=== PATIENT | female | born 2000 ===

== ENCOUNTER 2024-05-27 16:06 | Emergency (ER) | payer MEDICAID ==
[~2024-05-27] VITALS: Ht 172.7 cm; Wt 78.4 kg
--- NOTE | 2024-05-27 16:24 | Physician Documentation ---
History of Present Illness ~ Chief Complaint: Ankle pain Stated Complaint: LEFT FOOT PAIN Time Seen by MD: 16:19 OK to notify your PCP?: Yes Source: patient Mode of Arrival: POV Exam Limitations: no limitations HPI This is a 24-year-old female who comes in complaining of left ankle pain after injuring it while snowboarding earlier today. She was had a hard time bearing weight on the ankle since the injury. She was not complaining of any other area of pain. Medication Reconciliation Allergies: Coded Allergies: No Known Allergies (Unverified , 05/27/24) Physical Exam Vital Signs: Temperature: 98.5, Source: Oral, Heart Rate: 124, Respiratory Rate: 18, BP: 130/69, Pulse Oximetry: 100, Weight: 78.400 Pulse Oximetry Reflects: adequate oxygenation General Appearance: alert, WD/WN, no apparent distress Ankle To inspection of the left ankle there is mild edema to the lateral malleolus aspect of the ankle. No gross deformity. No ecchymosis. There is tenderness to palpation over the lateral malleolus without obvious deformity or crepitus of the distal fibula. There was no tenderness to palpation of the posterior malleolus. No tenderness to palpation of the calcaneus. Achilles tendon shows no deformity and normal Mosqueda's sign. No tenderness to palpation of the proximal 5th metatarsal or squeezing the midfoot. The left dorsalis pedis pulses 2+ and cap refill less than 2 seconds and brisk in the digits of the left foot. The patient was decreased active range of motion in all movements secondary to subjective pain. Passively she was full range of motion in all movements with increased pain with inversion. Procedures Splinting Procedure Note The patient left ankle was placed in a canvas lace-up splint and given crutches with a crutch training. Distal circulation motor sensory assessed 20 minutes after application of the splint. Cap refill less than 2 seconds and brisk and pinkish brown warm dry. Progress Results/Orders Reviewed/noted all lab results: Yes Results/Orders Orders - LISE PEREIRA Ankle, Complete(3vw Min) (05/27/24 16:29) Completed Orders - LISE PEREIRA Ankle, Complete(3vw Min) (05/27/24 16:29) Vital Signs 05/27/24 16:15 Temp 98.5 Pulse 124 Resp 18 B/P (MAP) 130/69 Pulse Ox 100 EKG/XRAY/CT/US/VASC/MRI Bone/Soft Tissue X-Ray (Ext.) : Interpreted By: self Additional Comment X-ray left ankle three-view interpreted by me: No obvious fracture or malalignment. Subtle soft tissue swelling of the lateral malleolus. Medical Decision Making Findings X-rays did not show evidence of fracture. The patient was fitted with a lace-up ankle brace and given crutches with crutch training. She was instructed to ice and elevate the ankle frequently and take ibuprofen or Tylenol for pain. Follow up with the primary care physician for recheck in the next one or two days and return to the ER for any worsening or concerning symptoms. Additional Comment Left ankle sprain strain. Left ATFL injury. Left distal fibula fracture Departure Disposition: HOME / SELF CARE / HOMELESS Impression: Primary Impression: Left ankle sprain Condition: Stable Discharge Instructions: Ankle Sprain Additional Instructions: Use the ankle brace and crutches as needed and weightbear as tolerated. Ice the ankle for 20 minutes every 2 hours for the 1st three days and elevate over the level of the heart as much as possible. Follow up with the primary care physician for recheck in the next one or two days and return to the ER for any worsening or concerning symptoms. Ibuprofen or Tylenol for pain. Referrals: NO PRIMARY CARE PROVIDER (PCP) Signature Scribe Signature: No scribe Attestation: The note accurately reflects work and decisions made by me.Lise EARL 05/27/24 16:50 LISE PEREIRA May 27, 2024 16:24
--- NOTE | 2024-05-27 16:44 | RADIOLOGY REPORT ---
EXAM: DI ANKLE, COMPLETE(3VW MIN) CLINICAL HISTORY: Left ankle injury COMPARISON: None TECHNIQUE: DI ANKLE, COMPLETE(3VW MIN) Findings/Impression: 3 views of the left ankle. There is no evidence of an acute fracture, dislocation, blastic, or lytic lesions. No radiopaque foreign bodies. Small joint effusion with mild soft tissue edema.
[2024-05-27 17:14] VITALS: BP 106/68; PULSE 62; RESP 16; TEMP 98.1; O2SAT 98
== END 2024-05-27 17:15 | disposition home or self-care (01) ==
LOC: ER 16:08
DX: S93.402A Sprain of unspecified ligament of left ankle, initial encounter (principal); X58.XXXA Exposure to other specified factors, initial encounter; Y93.23 Activity, snow (alpine) (downhill) skiing, snowboarding, sledding, tobogganing and snow tubing; Y92.89 Other specified places as the place of occurrence of the external cause; Y99.8 Other external cause status
CPT/HCPCS: 29540; 73610; 99283; L1930